=== PATIENT | male | born 1955 | race Caucasian/White ===

== ENCOUNTER → 2016-10-15 | Outpatient (CLI) | payer BC ==
--- NOTE | 2016-10-15 07:34 | XR ---
EXAMINATION TYPE: XR abdomen 1V DATE OF EXAM ORDERED: 10/15/2016 HISTORY: N20.0 renal calculus. COMPARISON: Previous study dated 05/02/2010. FINDINGS: There are is a 14.5 mm calcification overlying the mid polar region of the right kidney, u nchanged from previous smaller 8 mm lesion projecting over the tip of the 12th rib on the right. This was also present previously. There are 3 small calcifications overlying the left 12th rib. These ar e unchanged from previous and may be sclerotic foci within the ribs are maybe renal calculi with her quite lateral. There is a large phleboliths within the pelvis. IMPRESSION: 1. EVIDENCE OF RIGHT-SIDED NEPHROLITHIASIS. 2. SCLEROTIC FOCUS OVERLYING THE LEFT 12TH RIB MAY BE WITHIN THE RIB ITSELF THEY ARE VERY LATERAL TO BE WITHIN THE KIDNEY. OVERALL THERE HAS BEEN NO INTERVAL CHANGE IN THE APPEARANCE FROM PREVIOUS [facility].
== END | disposition home or self-care (01) ==
LOC: RADXRMAIN 06:45
PROVIDERS: ATTEND Urology
DX: N20.0 Calculus of kidney (principal)
CPT/HCPCS: 74000

== ENCOUNTER → 2017-11-09 | Outpatient (CLI) | payer BC ==
--- NOTE | 2017-11-09 08:33 | CT ---
EXAMINATION TYPE: CT sinus wo con DATE OF EXAM: 11/09/2017 COMPARISON: NONE HISTORY: Headaches and sinus pain CT DLP: 600 mGycm. Automated Exposure Control for Dose Reduction was Utilized. TECHNIQUE: CT scan of the sinuses is performed without contrast, axial images are obtained, coronal r eformatted images are also reviewed. FINDINGS: There is mild mucosal thickening involving maxillary sinuses and more moderate changes invo lving the ethmoid air cells greater on the left. No air-fluid levels. Frontal and sphenoid sinus demo nstrate minimal changes. Oropharynx and nasopharynx are symmetric. Intraorbital and intracranial structures are symmetric. The ostiomeatal complex is patent bilaterally on the coronal images. Visualized portion of mastoid air cells show no abnormal opacification. The globes are intact bilate rally. IMPRESSION: 1. Mild to moderate chronic sinusitis with greatest involvement involving the ethmoid air cells on th e left.
--- NOTE | 2017-11-09 12:41 | XR ---
EXAMINATION TYPE: XR chest 2V DATE OF EXAM: 11/09/2017 COMPARISON: NONE HISTORY: Chronic sinusitis, pre-MRI TECHNIQUE: Frontal and lateral views of the chest are obtained. FINDINGS: There is no focal air space opacity, pleural effusion, or pneumothorax seen. The cardiac silhouette size is within normal limits. The osseous structures are intact. No radio opaque foreign body. IMPRESSION: No acute cardiopulmonary process.
== END | disposition home or self-care (01) ==
LOC: RADCTMAIN 07:12
PROVIDERS: ATTEND Otolaryngology
DX: Z01.818 Encounter for other preprocedural examination (principal); J32.2 Chronic ethmoidal sinusitis
CPT/HCPCS: 70486; 71046

== ENCOUNTER 2018-12-12 19:44 | Emergency (ER) | payer OTHER ==
[2018-12-12] MEDS ORDERED: SODIUM CHLORIDE 0.9% 1,000 ML IV STA (20:14)
[2018-12-12 21:12] LABS: Basophils % (A) 1 %; Eosinophils # (A) 0.2 k/uL (0-0.7); Eosinophils % (A) 3 %; HCT 42.4 % (39.0-53.0); HGB 13.7 gm/dL (13.0-17.5); Lymphocytes # (A) 1.7 k/uL (1.0-4.8); Lymphocytes % (A) 28 %; MCH 29.2 pg (25.0-35.0); MCHC 32.3 g/dL (31.0-37.0); MCV 90.4 fL (80.0-100.0); Mean Platelet Volume 7.2; Monocytes # (A) 0.4 k/uL (0-1.0); Monocytes % (A) 7 %; Neutrophils # (A) 3.6 k/uL (1.3-7.7); Neutrophils % (A) 59 %; Platelet Count 201 k/uL (150-450); RBC 4.69 m/uL (4.30-5.90); RDW 12.7 % (11.5-15.5); WBC 6.1 k/uL (3.8-10.6)
[2018-12-12 21:25] LABS: ALT 32 U/L (21-72); AST 33 U/L (17-59); African American GFR (CKD) >90 (>60 ml/min/1.73 sqM); Alkaline Phosphatase 93 U/L (38-126); Amylase 52 U/L (30-110); Anion Gap 9 mmol/L; Blood Urea Nitrogen 22 mg/dL (9-20); Calcium 9.3 mg/dL (8.4-10.2); Carbon Dioxide 24 mmol/L (22-30); Chloride 107 mmol/L (98-107); Creatine Kinase 92 U/L (55-170); Glucose 75 mg/dL (74-99); Sodium 140 mmol/L (137-145); Total Bilirubin 0.6 mg/dL (0.2-1.3); Total Protein 6.9 g/dL (6.3-8.2)
--- NOTE | 2018-12-12 22:05 | ED ---
Abdominal Pain HPI - General Chief Complaint: Abdominal Pain Stated Complaint: Chest pain Time Seen by Provider: 12/12/18 20:14 Source: patient, RN notes reviewed Mode of arrival: ambulatory Limitations: no limitations - History of Present Illness Initial Comments: Is a 63-year-old male who presents with complaints of upper abdominal and lower chest pain is been going intermittently for last couple weeks. He currently is pain-free he states the pain is increased after the past couple weeks is burning in nature radiates to his back pain does come on. Currently pain-free no fevers chills nausea vomiting sweats no trauma. No other modifying factors at this time. MD Complaint: abdominal pain, other - Related Data Home Medications Medication Instructions Recorded Confirmed Atorvastatin [Lipitor] 80 mg PO HS 12/12/18 12/12/18 Cholecalciferol (Vitamin D3) 2,000 unit PO HS 12/12/18 12/12/18 [Vitamin D3] Naproxen Sodium [Aleve] 220 mg PO Q12HR 12/12/18 12/12/18 Allergies Allergy/AdvReac Type Severity Reaction Status Date / Time No Known Allergies Allergy Verified 12/12/18 21:12 Review of Systems ROS Statement: Those systems with pertinent positive or pertinent negative responses have been documented in the HPI. ROS Other: All systems not noted in ROS Statement are negative. Past Medical History Past Medical History: Atrial Fibrillation History of Any Multi-Drug Resistant Organisms: None Reported Additional Past Surgical History / Comment(s): cardiac ablation Past Psychological History: No Psychological Hx Reported Smoking Status: Former smoker Past Alcohol Use History: Rare Past Drug Use History: None Reported General Exam - General Exam Comments Initial Comments: Is a well-developed well-nourished awake alert oriented 3 male Limitations: no limitations General appearance: alert, in no apparent distress Head exam: Present: atraumatic, normocephalic, normal inspection Eye exam: Present: normal appearance, PERRL, EOMI. Absent: scleral icterus, conjunctival injection, periorbital swelling ENT exam: Present: normal exam, mucous membranes moist Neck exam: Present: normal inspection. Absent: tenderness, meningismus, lymphadenopathy Respiratory exam: Present: normal lung sounds bilaterally. Absent: respiratory distress, wheezes, rales, rhonchi, stridor, chest wall tenderness Cardiovascular Exam: Present: regular rate, normal rhythm, normal heart sounds. Absent: systolic murmur, diastolic murmur, rubs, gallop, clicks GI/Abdominal exam: Present: soft, normal bowel sounds. Absent: distended, tenderness, guarding, rebound, rigid Extremities exam: Present: normal inspection, full ROM, normal capillary refill. Absent: tenderness, pedal edema, joint swelling, calf tenderness Back exam: Present: normal inspection Neurological exam: Present: alert, oriented X3, CN II-XII intact Psychiatric exam: Present: normal affect, normal mood Skin exam: Present: warm, dry, intact, normal color. 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 We a long discussion regarding the potential differential diagnoses and outcomes I did offer admission the patient declined this time he will go home I did recommend daily aspirin his is has not nitroglycerin in case it is needed he is a follow-up with Dr. Guzman and return when necessary. - Lab Data Result diagrams: 12/12/18 20:49 12/12/18 20:49 Lab Results 12/12/18 12/12/18 12/12/18 Range/Units 20:49 20:49 20:49 WBC 6.1 (3.8-10.6) k/uL RBC 4.69 (4.30-5.90) m/uL Hgb 13.7 (13.0-17.5) gm/dL Hct 42.4 (39.0-53.0) % MCV 90.4 (80.0-100.0) fL MCH 29.2 (25.0-35.0) pg MCHC 32.3 (31.0-37.0) g/dL RDW 12.7 (11.5-15.5) % Plt Count 201 (150-450) k/uL Neutrophils % 59 % Lymphocytes % 28 % Monocytes % 7 % Eosinophils % 3 % Basophils % 1 % Neutrophils # 3.6 (1.3-7.7) k/uL Lymphocytes # 1.7 (1.0-4.8) k/uL Monocytes # 0.4 (0-1.0) k/uL Eosinophils # 0.2 (0-0.7) k/uL Basophils # 0.0 (0-0.2) k/uL D-Dimer (<0.60) mg/L FEU Sodium 140 (137-145) mmol/L Potassium 4.0 (3.5-5.1) mmol/L Chloride 107 (98-107) mmol/L Carbon Dioxide 24 (22-30) mmol/L Anion Gap 9 mmol/L BUN 22 H (9-20) mg/dL Creatinine 0.63 L (0.66-1.25) mg/dL Est GFR (CKD-EPI)AfAm >90 (>60 ml/min/1.73 sqM) Est GFR (CKD-EPI)NonAf >90 (>60 ml/min/1.73 sqM) Glucose 75 (74-99) mg/dL Calcium 9.3 (8.4-10.2) mg/dL Magnesium 2.0 (1.6-2.3) mg/dL Total Bilirubin 0.6 (0.2-1.3) mg/dL AST 33 (17-59) U/L ALT 32 (21-72) U/L Alkaline Phosphatase 93 (38-126) U/L Creatine Kinase 92 (55-170) U/L Troponin I <0.012 (0.000-0.034) ng/mL Total Protein 6.9 (6.3-8.2) g/dL Albumin 4.0 (3.5-5.0) g/dL Amylase 52 (30-110) U/L Lipase 52 (23-300) U/L 12/12/18 Range/Units 20:49 WBC (3.8-10.6) k/uL RBC (4.30-5.90) m/uL Hgb (13.0-17.5) gm/dL Hct (39.0-53.0) % MCV (80.0-100.0) fL MCH (25.0-35.0) pg MCHC (31.0-37.0) g/dL RDW (11.5-15.5) % Plt Count (150-450) k/uL Neutrophils % % Lymphocytes % % Monocytes % % Eosinophils % % Basophils % % Neutrophils # (1.3-7.7) k/uL Lymphocytes # (1.0-4.8) k/uL Monocytes # (0-1.0) k/uL Eosinophils # (0-0.7) k/uL Basophils # (0-0.2) k/uL D-Dimer 0.24 (<0.60) mg/L FEU Sodium (137-145) mmol/L Potassium (3.5-5.1) mmol/L Chloride (98-107) mmol/L Carbon Dioxide (22-30) mmol/L Anion Gap mmol/L BUN (9-20) mg/dL Creatinine (0.66-1.25) mg/dL Est GFR (CKD-EPI)AfAm (>60 ml/min/1.73 sqM) Est GFR (CKD-EPI)NonAf (>60 ml/min/1.73 sqM) Glucose (74-99) mg/dL Calcium (8.4-10.2) mg/dL Magnesium (1.6-2.3) mg/dL Total Bilirubin (0.2-1.3) mg/dL AST (17-59) U/L ALT (21-72) U/L Alkaline Phosphatase (38-126) U/L Creatine Kinase (55-170) U/L Troponin I (0.000-0.034) ng/mL Total Protein (6.3-8.2) g/dL Albumin (3.5-5.0) g/dL Amylase (30-110) U/L Lipase (23-300) U/L - EKG Data -: EKG Interpreted by Me EKG shows normal: sinus rhythm, axis, intervals, QRS complexes, ST-T waves (Was sinus rhythm rate is 65. We'll 158 QRS duration 96 QT since QTC 396/411) Rate: normal - Radiology Data Radiology results: report reviewed (I did review the imaging and report no acute findings.), image reviewed Disposition Clinical Impression: Chest pain Disposition: HOME SELF-CARE Condition: Good Instructions (If sedation given, give patient instructions): Chest Pain (ED) Additional Instructions: Take a baby aspirin every day, seek medical care for recurrent symptoms. Is patient prescribed a controlled substance at d/c from ED?: No Referrals: Ricco Guzman MD [Primary Care Provider] - 1-2 days
--- NOTE | 2018-12-12 22:42 | XR ---
EXAMINATION: XR chest 2V DATE AND TIME: 12/12/2018 9:29 PM CLINICAL INDICATION: PHH; abdominal pain TECHNIQUE: Departmental protocol COMPARISON: 11/09/2017 FINDINGS: The lungs are clear. The pleural spaces are negative. The cardiac silhouette is not enlarged. The remainder of the mediastinal silhouette is unremarkable. The skeletal structures and soft tissues are negative for acute findings. IMPRESSION: NO ACUTE PROCESS.
--- NOTE | 2018-12-12 22:47 | XR ---
EXAMINATION TYPE: XR abdomen 2V DATE OF EXAM: 12/12/2018 COMPARISON: 10/15/2016 HISTORY: Pain that radiates to the back TECHNIQUE: 2 upright views FINDINGS: Visualized lung bases and pleural spaces are negative. There is excessive stool throughout the colon. The bowel gas pattern is otherwise negative. No definite acute skeletal or soft tissue findings. 15 mm calcification overlying the mid right kidney, unchanged. There are 3 small calcifications overlying the right 12th rib; unchanged. There is a large right-sided phlebolith in the pelvis. IMPRESSION: No definite acute process, although constipation is suggested.
[2018-12-12 23:45] VITALS: BP 121/82; PULSE 60; RESP 18; TEMP 98
== END 2018-12-12 23:40 | disposition home or self-care (01) ==
LOC: EC 19:44
DX: R07.9 Chest pain, unspecified (principal); R10.10 Upper abdominal pain, unspecified; I48.91 Unspecified atrial fibrillation; Z79.899 Other long term (current) drug therapy; Z79.1 Long term (current) use of non-steroidal anti-inflammatories (NSAID); Z87.891 Personal history of nicotine dependence; Z98.890 Other specified postprocedural states
CPT/HCPCS: 36415; 71046; 74019; 80053; 82150; 82550; 83690; 83735; 84484; 85025; 85379; 93005; 96360; 96361; 99284

== ENCOUNTER → 2020-10-01 | Outpatient (CLI) | payer MEDICARE, OTHER ==
--- NOTE | 2020-10-01 16:00 | US ---
EXAMINATION TYPE: US carotid duplex BILAT DATE OF EXAM: 10/01/2020 COMPARISON: NONE CLINICAL HISTORY: G45.9 Transient cerebral ischemia attack. TIA, pt states no complaints at this time EXAM MEASUREMENTS: RIGHT: Peak Systolic Velocity (PSV) cm/sec ----- Right CCA: 96.5 ----- Right ICA: 101 ----- Right ECA: 102 ICA/CCA ratio: 1.0 RIGHT: End Diastole cm/sec ----- Right CCA: 30.6 ----- Right ICA: 29.2 ----- Right ECA: 19.0 LEFT: Peak Systolic Velocity (PSV) cm/sec ----- Left CCA: 99.2 ----- Left ICA: 84.9 ----- Left ECA: 90.8 ICA/CCA ratio: 0.9 LEFT: End Diastole cm/sec ----- Left CCA: 36.7 ----- Left ICA: 41.4 ----- Left ECA: 18.8 VERTEBRALS (direction of flow): Right Vertebral: Antegrade Left Vertebral: Antegrade Rhythm: Normal Incidental note of right thyroid nodule measuring 1.8 cm. Dedicated thyroid ultrasound is recommended . Mild atherosclerotic plaque at the right common carotid artery bifurcation. Minimal atherosclerotic p laque at the left common carotid artery bifurcation. IMPRESSION: 1. Less than 50% stenosis of the bilateral internal carotid arteries. No evidence of pneumo dynamical ly significant stenosis. 2. 1.8 cm right thyroid nodule. Dedicated thyroid ultrasound is recommended for further evaluation. Criteria for Assigning % of Stenosis / Diameter reduction (Estimation based on the indirect measurements of the internal carotid artery velocities (ICA PSV). 1. Normal (no stenosis)=ICA PSV < 125 cm/s: ratio < 2.0: ICA EDV<40 cm/s. 2. Less than 50% stenosis=ICA PSV < 125 cm/s: ratio < 2.0: ICA EDV<40 cm/s. 3. 50 to 69% stenosis=ICA PSV of 125 to 230 cm/s: ration 2.0 ? 4.0: ICA EDV 40-100 cm/s. 4. Greater than 70% stenosis to near occlusion= ICA PSV > 230 cm/s: ratio > 4.0: ICA EDV > 100 cm/s. 5. Near occlusion= ICA PSV velocities may be low or undetectable: variable ratio and ICA EDV. 6. Total occlusion=unable to detect flow.
== END | disposition home or self-care (01) ==
LOC: RADUSWWP 15:02
PROVIDERS: ATTEND Family Medicine
DX: I65.23 Occlusion and stenosis of bilateral carotid arteries (principal); E04.1 Nontoxic single thyroid nodule
CPT/HCPCS: 93880

== ENCOUNTER → 2020-12-10 | Outpatient (CLI) | payer MEDICARE ==
--- NOTE | 2020-12-10 16:39 | US ---
EXAMINATION TYPE: US thyroid st tissue head/neck DATE OF EXAM: 12/10/2020 COMPARISON: 10/01/2020 carotid ultrasound CLINICAL HISTORY: 65-year-old male E04.1 Thyroid Nodule. TECHNIQUE: Multiple sonographic images of the thyroid gland are obtained. FINDINGS: GLAND SIZE: Right Lobe: 4.8 x 1.9 x 2.2 cm Overall Parenchyma: homogenous Left Lobe: 3.3 x 1.2 x 1.4 cm Overall Parenchyma: homogeneous Isthmus Thickness: 0.3 cm NODULES RIGHT: # of nodules measured on right: 1 1. 1.7 X 1.4 x 1.5 cm, TR 3 mid pole, solid, isoechoic nodule, which is taller than wide, with smoo th margins, without echogenic foci. LEFT: # of nodules measured on left: 0 ISTHMUS: # of nodules measured in the isthmus: 1 1. 0.7 x 0.6 x 0.7cm TR4 heterogeneous, hypoechoic round nodule, with echogenic focus anterior wall. Bilateral neck scanned: no evidence of lymphadenopathy IMPRESSION: 1. Solid 1.7 cm TR3 nodule in the right lobe. Continue to follow. FNA if it reaches 2.5 cm. 2. Partially calcified 7 mm TR4 nodule in the thyroid isthmus. Continue to follow. FNA if it reaches 1.5 cm.
== END | disposition home or self-care (01) ==
LOC: RADUSWWP 13:52
PROVIDERS: ATTEND Family Medicine
DX: E04.1 Nontoxic single thyroid nodule (principal)
CPT/HCPCS: 76536

== ENCOUNTER → 2021-01-21 | Outpatient (CLI) | payer MEDICARE ==
--- NOTE | 2021-01-21 16:15 | US ---
EXAMINATION TYPE: US abdomen limited DATE OF EXAM: 01/21/2021 COMPARISON: NONE CLINICAL HISTORY: 65-year-old male R74.8 Elevated serum. EXAM MEASUREMENTS: Liver Length: 16.2 cm Gallbladder Wall: 0.2 cm CBD: 0.6 cm Right Kidney: 11.0x5.1x5.2 cm Pancreas: Suboptimal visualization due to shadowing from bowel gas. Liver: Granuloma 1.1cm at the posterior right hepatic dome. Otherwise, homogeneous appearance withou t focal lesion. Gallbladder: wnl CBD: Upper limit of normal Right Kidney: Large stone mid measuring 1.4cm. No hydronephrosis. IMPRESSION: 1. Bile duct borderline dilated at 6 mm probably normal given patient's age. Correlate with alkaline phosphatase and bilirubin levels to exclude early biliary obstruction. No hydropic gallbladder change to further support biliary obstruction. 2. No gallstones. 3. Nonobstructive 1.4 cm mid right renal calculus.
== END | disposition home or self-care (01) ==
LOC: RADUSWWP 09:39
PROVIDERS: ATTEND Family Medicine
DX: N20.0 Calculus of kidney (principal); K83.8 Other specified diseases of biliary tract
CPT/HCPCS: 76705

== ENCOUNTER → 2021-04-15 | Outpatient (CLI) | payer MEDICARE ==
--- NOTE | 2021-04-16 10:40 | XR ---
EXAMINATION TYPE: XR KUB DATE OF EXAM: 04/15/2021 COMPARISON: 05/02/2010 HISTORY: Pain TECHNIQUE: One view abdominal series FINDINGS: The osseous structures are intact. The bowel gas pattern is nonspecific. Large right hemipelvic calc ification stable. Arthropathy of the left hip and postsurgical change right hip. Bowel content limits assessment of the renal outlines however, there appears to be at least 2 calcifications overlying th e right kidney the largest measuring 1.4 cm and the second measuring 6 mm. Cannot exclude a upper jaime e 5 mm left renal calculus. IMPRESSION: 1. Right renal calculi as described and measured above have increased in size with regard to the uppe r pole calculus now measuring 1.4 cm. 2. Cannot exclude a 5 mm upper pole left renal calculus.
== END | disposition home or self-care (01) ==
LOC: RADXRMAIN 16:27
PROVIDERS: ATTEND Urology
DX: N20.0 Calculus of kidney (principal)
CPT/HCPCS: 74018

== ENCOUNTER → 2021-09-05 | Day surgery (SDC) | payer MEDICARE ==
[2021-09-03 11:17] VITALS: BMI 27.2
[~2021-09-05] MED LIST: LACTATED RINGERS 1,000 ML IV SCH; PROPOFOL 10 MG/ML 20 ML VIAL IV ONE
[2021-09-05 11:08] VITALS: TEMP 97.6
--- NOTE | 2021-09-05 12:34 | P.PCN ---
Date of Procedure: 09/05/21 Procedure(s) Performed: BRIEF HISTORY: Patient is a 65-year-old pleasant male scheduled for an elective colonoscopy as a part of evaluation of intermittent rectal bleeding for the last 6 months duration. PROCEDURE PERFORMED: Colonoscopy. PREOPERATIVE DIAGNOSIS: Intermittent rectal bleeding IV sedation per Anesthesia. PROCEDURE: After informed consent was obtained, the patient, was brought into the endoscopy unit. IV sedation was administered by Anesthesia under continuous monitoring. Digital rectal examination was normal. Initially the Olympus CF-160 flexible video colonoscope was then inserted in the rectum, gradually advanced into the cecum without any difficulty. Careful examination was performed as the scope was gradually being withdrawn. Ileocecal valve and the appendiceal orifice were visualized and appeared normal. Prep was excellent. Mucosa of the cecum, ascending colon, transverse colon, descending colon, sigmoid colon, and rectum appeared normal. Scattered sigmoid diverticulosis.Retroflexion was performed in the rectum and small internal hemorrhoids. were seen. The patient tolerated the procedure well. IMPRESSION: Normal-appearing colon from rectum to cecumwith no evidence of colorectal neoplasia . Scattered sigmoid diverticulosis. Small internal hemorrhoids. RECOMMENDATIONS: Findings of this examination were discussed with the patient as well as his family..He was advised to be on a high-fiber diet and take fiber supplements a regular basis. Recommend repeat screening colonoscopy in 10 years.
[2021-09-05 12:41] VITALS: RESP 16
[2021-09-05 12:51] VITALS: BP 110/76; PULSE 65
== END ==
LOC: ORWHC2ENDO 10:41
PROVIDERS: ATTEND Internal Medicine Gastroenterology
DX: K57.30 Diverticulosis of large intestine without perforation or abscess without bleeding (principal); K64.8 Other hemorrhoids; I48.91 Unspecified atrial fibrillation; E78.5 Hyperlipidemia, unspecified; Z79.899 Other long term (current) drug therapy
CPT/HCPCS: 45378; J2704

== ENCOUNTER → 2021-09-18 | Outpatient (CLI) | payer MEDICARE ==
--- NOTE | 2021-09-18 13:13 | US ---
EXAMINATION TYPE: US abd limited kidneys/bladder DATE OF EXAM: 09/18/2021 COMPARISON: 01/21/2021 CLINICAL HISTORY: 65 year-old male N23 UNSPECIFIED RENAL COLIC. Hx kidney stone. TECHNIQUE: Multiple sonographic images of the right upper quadrant, bilateral kidneys, and bladder ar e obtained. FINDINGS: EXAM MEASUREMENTS: Liver Length: 16.0 cm Gallbladder Wall: 0.18 cm CBD: 0.58 cm Right Kidney: 11.2 x 5.0 x 5.5 cm Left Kidney: 11.6 x 6.0 x 5.5 cm Hot Press Operator notes:*Limited due to gas. Pancreas: Not well seen due to gas. Liver: Hyperechoic, shadowing focus seen within the right lobe: 0.9 x 0.8 x 0.7 cm. This is unchange d from 01/21/2021 and is compatible with a calcification when correlating with prior [address] CT. Gallbladder: Folds seen. Appears anechoic. No abnormal distention, surrounding fluid, or shadowing c alculi. CBD: Measures upper limits of normal, acceptable for patient's age. Right Kidney: Hyperechoic focus with posterior shadowing seen at mid: 1.6 x 1.4 x 0.8 cm. No hydron ephrosis. Left Kidney: Appearance of possible column of Herb. No hydronephrosis. Bladder: No gross abnormality. Bilateral Jets Seen Yes IMPRESSION: 1. Unchanged chronic 9 mm calcification right hepatic dome, likely of no clinical significance. 2. No gallstones or biliary ductal dilatation. 3. Nonobstructive 1.6 cm right midpole renal calculus. No hydronephrosis on either side. 4. No gross abnormality of the bladder.
== END | disposition home or self-care (01) ==
LOC: RADUSWWP 07:30
PROVIDERS: ATTEND Family Medicine
DX: N20.0 Calculus of kidney (principal); Z87.442 Personal history of urinary calculi
CPT/HCPCS: 76705; 76770

== ENCOUNTER → 2021-11-14 | Outpatient (CLI) | payer MEDICARE ==
--- NOTE | 2021-11-14 15:33 | US ---
EXAMINATION TYPE: US thyroid st tissue head/neck DATE OF EXAM: 11/14/2021 COMPARISON: US January 07, 2021 CLINICAL HISTORY: E04.1 NONTOXIC SINGLE THYROID NODULE. Nodule. GLAND SIZE: Right Lobe: 4.8 x 2.4 x 2.1 cm Overall Parenchyma: homogenous Left Lobe: 4.3 x 1.5 x 1.4 cm Overall Parenchyma: homogeneous Isthmus Thickness: 0.29 cm NODULES RIGHT: # of nodules measured on right: 1 1. 1.9 X 1.8 x 1.4 cm, mid mid, solid or almost completely solid, isoechoic nodule, which is wider than tall, with smooth margins, without echogenic foci. Prior size: 1.7 x 1.4 x 1.5 cm LEFT: # of nodules measured on left: 1 1. 0.6 X 0.6 x 0.5 cm, lower mid, mixed cystic and solid, very hypoechoic nodule, which is wider th an tall, with ill-defined margins, without echogenic foci. Prior size: Does not correlate. ISTHMUS: # of nodules measured in the isthmus: 1 1. 1.0 X 0.7 x 0.7 cm solid or almost completely solid, hyperechoic calcified nodule, which is as w noa as it is tall, with smooth margins. Prior size: 0.7 x 0.6 x 0.7 cm Bilateral neck scanned, no evidence of lymphadenopathy. Stable homogeneous normal-sized thyroid with stable bilateral dominant nodules accounting for technic al differences. Technologist lucio suspected new 6 mm hypoechoic solid nodule left thyroid lobe lower pole level likely was present prior study in retrospect image [id number] IMPRESSION: As above. No new or enlarging greater than 1 cm solid nodules.
== END | disposition home or self-care (01) ==
LOC: RADUSWWP 14:46
PROVIDERS: ATTEND Family Medicine
DX: E04.2 Nontoxic multinodular goiter (principal)
CPT/HCPCS: 76536

== ENCOUNTER 2022-01-13 12:12 | Day surgery (SDC) | payer MEDICARE ==
[2022-01-14 10:00] VITALS: TEMP 98.3
[2022-01-14 10:08] VITALS: BP 133/86; PULSE 68; RESP 16
--- NOTE | 2022-01-15 21:03 | US ---
EXAMINATION TYPE: US FNA thyroid first lesion DATE OF EXAM: 01/15/2022 COMPARISON: NONE HISTORY: Thyroid nodule. Maximal barrier technique was utilized. After informed consent, skin overlying the right lobe thyroi d nodule was localized with ultrasound and the overlying skin prepped and draped. Ultrasound was util ized using sterile technique. Lidocaine was used for local anesthesia. Five passes with a 25-gauge n eedle were made into the nodule and aspirated specimen was submitted to cytology. Following the proc edure hemostasis achieved. No immediate complication. The patient discharged in stable condition. IMPRESSION: STATUS POST ULTRASOUND GUIDED FINE NEEDLE ASPIRATION OF RIGHT THYROID NODULE, PATHOLOGY I S PENDING. THIS PROCEDURE WAS PERFORMED BY THE UNDERSIGNED.
== END 2022-01-13 14:20 | disposition home or self-care (01) ==
LOC: RADPROMAIN 12:12
PROVIDERS: ATTEND Family Medicine
DX: E04.1 Nontoxic single thyroid nodule (principal); Z79.82 Long term (current) use of aspirin; Z79.899 Other long term (current) drug therapy; Z87.891 Personal history of nicotine dependence
CPT/HCPCS: 10005; 88173; 88305

== ENCOUNTER → 2022-03-13 | Outpatient (CLI) | payer MEDICARE ==
--- NOTE | 2022-03-13 07:34 | US ---
EXAMINATION TYPE: US liver DATE OF EXAM: 03/13/2022 COMPARISON: NONE CLINICAL HISTORY: R74.01 elevated liver enzymes. elevated liver enzymes, history of kidney stone TECHNIQUE: Multiple sonographic images of the right upper quadrant are obtained. FINDINGS: EXAM MEASUREMENTS: Liver Length: 15.3 cm Gallbladder Wall: 0.3 cm CBD: 0.7 cm Right Kidney: 11.4 x 5.6 x 5.4 cm Pancreas: Obscured by bowel gas Liver: calcification = 1.1 x 1.4cm Gallbladder: no evidence of stones Evidence for sonographic Garcia's sign: no CBD: upper limits of normal Right Kidney: stone mid = 1.6 x 1.5cm IMPRESSION: * No evidence of acute abdominal process. * Intrahepatic calcification. Finding may represent calcified granuloma. * Nonobstructing right renal calculus.
== END | disposition home or self-care (01) ==
LOC: RADUSWWP 06:52
PROVIDERS: ATTEND Family Medicine
DX: N20.0 Calculus of kidney (principal); K76.89 Other specified diseases of liver
CPT/HCPCS: 76705